=== PATIENT | female | born 1990 | race African-American/Black ===

== ENCOUNTER 2016-08-17 21:57 | Emergency (ER) | payer SELFPAY ==
[2016-08-17 22:03] VITALS: BP 135/84; BMI 34.7
[2016-08-17 23:06] LABS: APPEARANCE,URINE HAZY (CLEAR); BACTERIA,URINE TRACE /HPF (NEGATIVE); BILIRUBIN,URINE NEGATIVE (NEGATIVE); BLOOD/HEMOGLOBIN,URINE 5+ (NEGATIVE); COLOR,URINE YELLOW (YELLOW); GLUCOSE, URINE NEGATIVE (NEGATIVE); KETONES,URINE NEGATIVE (NEGATIVE); LEUKOCYTE ESTERASE ,URINE 2+ (NEGATIVE); NITRITES,URINE NEGATIVE (NEGATIVE); PROTEIN,URINE 2+ (NEGATIVE); RBC,URINE 40-50 /HPF (NEGATIVE); SQUAMOUS EPITHELIAL CELL,UR MODERATE /HPF (NEGATIVE); UROBILINOGEN,URINE 1+ (NORMAL)
--- NOTE | 2016-08-18 00:11 | DR.PREG ---
HPI - Time seen Time seen: 00:07 - PCP Primary Care Physician: SANOTSH - Chief Complaint Chief Complaint Doctors Comments: Patient states she has been spotting after taking a home pregancy test a week ago she has noticed spotting. states she went to the clinic and they told her she was 6-7 weeks j. states she is a . She has not local doctor and she has not seen a doctor during this . She denies fever, chills, nausea or vomiting. She denies hematuria, dysuria or vaginal discharge or continuous bleeding. She is not having any abdominal pain or cramping. States last sexual activit two week ago. Chief Complaint:: PT STATES SHE HAS BEEN SPOTTING FOR SEVERAL DAYS, BUT NOTICED A CLOT TODAY. PT DENIES CRAMPING OR ABD PAIN. - Nurses Notes Reviewed Nurses Notes Review: Yes - Source History Provided: Patient - Mode of Arrival Mode of Arrival: Ambulatory - Context Complains of: Other (spotting) History of: Previous vaginal delivery : 5 Para: 3 Abortions: 1 Gestational Age in Weeks: 7 Care: No - Quality Vaginal fluid leakage color: None - Timing Onset of Chief Complaint: 08/13/16 Came on: Gradually Pain: Resolved Pain: None - Severity Vaginal Bleeding: Deferred Vaginal Leakage: Deferred - Associated Signs & Symptoms Asociated signs & symptoms: None PMH - PMH Past Medical History: No Past Surgical History: No - Family History History of Family Medical Conditions: No Family Medical History: Diabetes Mellitus, Hypertension - Social History Alcohol Use: None Do you use any recreational Drugs:: No Lives With: Family Lives Where: Home - infectious screening In the last 2 months have you had wt loss of >10#?: NO Have you had fever, night sweats or hemotysis?: No Have you traveled outside the country in the last 6 months?: No Isolation: Standard ROS - Review of Systems Constitutional: No Symptoms Reported. negative: See HPI, Chills, Diaphoresis, Fever, Malaise, Weakness, Irritable, Fatigue, Loss of Appetite, Other Eyes: No Symptoms Reported ENTM: No Symptoms Reported Respiratoy: No Symptoms Reported. negative: See HPI, Productive Cough, Non- Productive Cough, Moist Cough, Dry Cough, Hacking Cough, Barking Cough, Brassy Cough, Orthopnea, Short of Breath, Stridor, Wheezing, Hemoptysis, Other Cardiovascular: No Symptoms Reported Gastrointestinal/Abdominal: No Symptoms Reported Genitourinary: No Symptoms Reported. negative: See HPI, Discharge, Dysuria, Frequency, Hematuria, Pain, Bleeding, Other Neurological: No Symptoms Reported Musculoskeletal: No Symptoms Reported Integumentary: No Symptoms Reported Hematologic/Lymphatic: No Symptoms Reported Endocrine: No Symptoms Reported Psychiatric: No Symptoms Reported. negative: See HPI, Anxiety, Depression, Hallucinations, Excessive crying, Suicidal, Other PE - Vital Signs Vitals: Temperature 98.1 F Pulse Rate 104 Respiratory Rate 20 Blood Pressure [Left Arm] 125/76 Blood Pressure 135/84 O2 Sat by Pulse Oximetry 99 - General Limitations: No Limitations General Appearance: Alert, In No Apparent Distress - Head Head Exam: Normal Inspection, Atraumatic, Normocephalic - Eyes Eye exam: Normal Appearance, PERRL, EOMI. negative: Scleral Icterus, Conjunctival Injection, Nystagmus, Miosis, Mydrasis, Periorbital Swelling, Periorbital Tenderness, Other - ENT ENT Exam: Normal Exam, Normal Oropharynx, Normal External Ear Exam, Mucous Membranes Moist, TM's Normal Bilaterally - Neck Neck Exam: Normal Inspection, Full ROM, Trachea Midline. negative: Tenderness, Meningismus, Lymphadenopathy, Thyromegaly, Other - Chest Chest Inspection: Normal Inspection, Symmetric Chest Wall Rise. negative: Tenderness, Rash, Abscess, Other - Respiratory Respiratory Exam: Normal Lung Sounds Bilat. negative: Accessory Muscle Use, Chest Wall Tenderness, Prolonged Expiratory Phase, Respiratory Distress, Stridor , Other Respiratory Exam: Bilateral Clear to Auscultation - Cardiovascular Cardiovascular Exam: Regular Rate, Normal Rhythm - Abdominal Exam Abdominal Exam: Normal Inspection, Normal Bowel Sounds, Soft Abdominal Tenderness: negative: RUQ, RLQ, LUQ, LLQ, Epigastrium, Suprapubic, Diffuse, Mild, Moderate, Severe, Other - Contractions: None - Back Back Exam: Normal Inspection, Full ROM. negative: Tenderness, (R) CVA Tenderness, (L) CVA Tenderness, Muscle Spasm, Paraspinal Tenderness, Vertebral Tenderness, Rashes, (R) Sciatic Notch Tenderness, (L) Sciatic Notch Tendern, (R ) Straight Leg Raise, (L) Straight Leg Raise, Other - Extremeties Extremities Exam: Normal Inspection, Full ROM, Normal Capillary Refill. negative: Tenderness, Edema, Joint Swelling, Calf Tenderness, Other - Neurologic Neurological Exam: Alert, Oriented X3, CN II-XII Intact, Normal Gait, Reflexes Normal - Psychiatric Psychiatric Exam: Normal Affect, Normal Mood. negative: Depressed, Agitated, Anxious, Flat Affect, Manic, Homicidal Ideation, Suicidal Ideation, Other - Skin Skin Exam: Warm, Dry, Intact, Normal Color. negative: Rash, Cyanosis, Diaphoresis, Erythema, Pallor, Mottled, Other ROR - Labs Reviewed Laboratory Results Reviewed?: Yes (all labs reviewed and discussed with patient. Awaiting quantitative HCG ) Result Diagrams: 08/18/16 00:40 Laboratory: WBC 7.4 X10^3/uL (3.6-10.0) 08/18/16 00:40 RBC 4.48 X10^6/uL (3.5-5.4) 08/18/16 00:40 Hgb 12.0 g/dL (12.0-16.0) 08/18/16 00:40 Hct 36.8 % (36.0-47.0) 08/18/16 00:40 MCV 82.2 fL (80.0-100.0) 08/18/16 00:40 MCH 26.9 pg (27.0-34.0) L 08/18/16 00:40 MCHC 32.7 g/dL (33.0-35.0) L 08/18/16 00:40 RDW 14.3 % (11.6-16.5) 08/18/16 00:40 Plt Count 204 X10^3/uL (150.0-450.0) 08/18/16 00:40 MPV 9.7 fL (7.4-11.0) 08/18/16 00:40 Neut % 66.0 % (42.0-75.0) 08/18/16 00:40 Lymph % 25.6 % (21.0-51.0) 08/18/16 00:40 [place] % 6.3 % (0.0-13.0) 08/18/16 00:40 Eos % 1.6 % (0.9-2.9) 08/18/16 00:40 Baso % 0.5 % (0.2-1.0) 08/18/16 00:40 Neut # 4.9 x10^3/uL (2.2-4.8) H 08/18/16 00:40 Lymph # 1.9 X10^3/uL (1.3-2.9) 08/18/16 00:40 Bryan # 0.5 x10^3/uL (0.3-0.8) 08/18/16 00:40 Eos # 0.1 x10^3/uL (0.0-0.2) 08/18/16 00:40 Baso # 0.0 X10^3/uL (0.0-0.1) 08/18/16 00:40 Absolute Nucleated RBC 0.0 /100WBC 08/18/16 00:40 HCG, Quant [id number] mIU/mL (0-6) H 08/18/16 00:40 Specimen Type Clean catch urine 08/17/16 22:38 Urine Color Yellow (YELLOW) 08/17/16 22:38 Urine Appearance Hazy (CLEAR) 08/17/16 22:38 Urine pH 6.0 (5.0 - 8.0) 08/17/16 22:38 Ur Specific [place] 1.020 (1.000-1.030) 08/17/16 22:38 Urine Protein 2+ (NEGATIVE) 08/17/16 22:38 Urine Glucose (UA) Negative (NEGATIVE) 08/17/16 22:38 Urine Ketones Negative (NEGATIVE) 08/17/16 22:38 Urine Occult Blood 5+ (NEGATIVE) 08/17/16 22:38 Urine Nitrite Negative (NEGATIVE) 08/17/16 22:38 Urine Bilirubin Negative (NEGATIVE) 08/17/16 22:38 Urine Urobilinogen 1+ (NORMAL) 08/17/16 22:38 Ur Leukocyte Esterase 2+ (NEGATIVE) 08/17/16 22:38 Urine RBC 40-50 /HPF (NEGATIVE) 08/17/16 22:38 Urine WBC 10-15 /HPF (NEGATIVE) 08/17/16 22:38 Ur Squamous Epith Cells Moderate /HPF (NEGATIVE) 08/17/16 22:38 Urine Bacteria Trace /HPF (NEGATIVE) 08/17/16 22:38 Ur Culture Indicated? Yes/culture set up 08/17/16 22:38 - Diagnosis Discharge Problem: Vaginal spotting, Urinary tract infection Qualifiers: Weeks of gestation: 8 weeks Qualified Code(s): Z3A.08 - 8 weeks gestation of - Discharge Plan Disposition: 01 HOME, SELF-CARE Condition: Stable Prescriptions: Amoxicillin [AMOXIL CAP 500 MG *] 500 mg PO TID #30 cap - Follow ups/Referrals Follow ups/Referrals: DARCY FROST [Primary Care Provider] - 3 days - Instructions Instructions: Vaginal Bleeding During , First Trimester, Urinary Tract Infection,
[2016-08-18 01:00] LABS: BASOPHILS % (AUTO) 0.5 % (0.2-1.0); EOSINOPHILS # (AUTO) 0.1 x10^3/uL (0.0-0.2); EOSINOPHILS % (AUTO) 1.6 % (0.9-2.9); HEMATOCRIT 36.8 % (36.0-47.0); LYMPHOCYTES # (AUTO) 1.9 X10^3/uL (1.3-2.9); LYMPHOCYTES % (AUTO) 25.6 % (21.0-51.0); MEAN CORPUSCULAR HEMOGLOBIN 26.9 pg (27.0-34.0); MEAN CORPUSCULAR HGB CONC 32.7 g/dL (33.0-35.0); MEAN CORPUSCULAR VOLUME 82.2 fL (80.0-100.0); MEAN PLATELET VOLUME 9.7 fL (7.4-11.0); MONOCYTES # (AUTO) 0.5 x10^3/uL (0.3-0.8); MONOCYTES % (AUTO) 6.3 % (0.0-13.0); NEUTROPHILS # (AUTO) 4.9 x10^3/uL (2.2-4.8); PLATELET COUNT 204 X10^3/uL (150.0-450.0); RED BLOOD COUNT 4.48 X10^6/uL (3.5-5.4); RED CELL DISTRIBUTION WIDTH 14.3 % (11.6-16.5); WHITE BLOOD COUNT 7.4 X10^3/uL (3.6-10.0)
[2016-08-18] MEDS ORDERED: AUGMENTIN 500 MG/125 MG TAB PO ONE ×2 (01:16→01:29)
[2016-08-18] MEDS ORDERED: CHRONULAC PO STA (01:30)
[2016-08-18] MEDS ORDERED: CHRONULAC PO SCH (09:00)
== END 2016-08-18 02:05 | disposition home or self-care (01) ==
LOC: ER 22:22
DX: O26.851 Spotting complicating pregnancy, first trimester (principal); N39.0 Urinary tract infection, site not specified; Z3A.08 8 weeks gestation of pregnancy
CPT/HCPCS: 36415; 81001; 84702; 85025; 87086; 99282

== ENCOUNTER 2018-03-27 06:21 | Inpatient (IN) ==
[2018-03-27] MEDS ORDERED: D5 1/2 NS 1000 ML 1,000 ML IV ONE (06:28)
[2018-03-27] MEDS ORDERED: PITOCIN IVP ONE (06:58)
[2018-03-27] MEDS ORDERED: REGLAN INJ 10 MG VIAL IVP PRN ×2 (06:58→12:43)
[2018-03-27] MEDS ORDERED: D5 1/2 NS 1000 ML 1,000 ML IV SCH (06:58)
[2018-03-27] MEDS ORDERED: D5LR 1L W PITOCIN 10 UNITS/L 10 UNITS/1,000 ML BAG IV PRN (06:58)
[2018-03-27] MEDS ORDERED: AMPICILLIN VIAL 2 GRAM 2 G in NS 100 ML IV + SPIKE MINIBAG* 100 ML IV SCH (06:58)
[2018-03-27] MEDS ORDERED: PHENERGAN INJ 25 MG IV PRN (06:58)
[2018-03-27] MEDS ORDERED: NUBAIN INJ 200 MG VIAL MULTIDOSE IVP PRN (06:58)
[2018-03-27] MEDS ORDERED: NS 100 ML IV 100 ML IV ONE (06:59)
[2018-03-27] MEDS ORDERED: AMPICILLIN VIAL 2 GRAM ONE (07:00)
--- NOTE | 2018-03-27 07:02 | DR.OB ---
OB Quick Note - Assessment/Plan Assessment/Plan: L&D 03/27/18 at 6:50am S-No complaint. O-Afebrile,VSS WHK=[id number] with good LTV, +accel, no decel CTX=none CVX=4cm/50%/-1/VTX AROM with clear fluid. IUPC and FSE placed. A-IUP at 38 4/7 weeks for induction +GBS Multiparity P-Begin pitocin induction IV ABX in labor Anticipate with PP BTL
[2018-03-27] MEDS ORDERED: LR 1000 ML IV 1,000 ML IV ONE (07:07)
[2018-03-27] MEDS ORDERED: FENTANYL INJ 100 mcg ONE ×2 (07:08→10:40)
[2018-03-27] MEDS ORDERED: NAROPIN EPIDURAL 0.2% + FENTANYL 90MCG 0 ML EPI ONE (07:09)
[2018-03-27] MEDS ORDERED: XYLOCAINE 1 % (PLAIN) ONE (07:57)
[2018-03-27] MEDS ORDERED: ADRENALINE CHL INJ ONE (07:58)
[2018-03-27] MEDS ORDERED: XYLOCAINE-MPF 1% ONE (07:58)
[2018-03-27] MEDS ORDERED: NUBAIN INJ 10 ONE (08:03)
[2018-03-27] MEDS ORDERED: MOTRIN TAB 800 MG PO PRN (10:34)
[2018-03-27] MEDS: AMPICILLIN VIAL 1 GRAM 1 G in NS 50 ML IV + SPIKE MINIBAG* 50 ML IV SCH ×2 (10:40→10:44)
[2018-03-27] MEDS ORDERED: ANCEF VIAL 1 GRAM ONE (10:57)
[2018-03-27] MEDS ORDERED: D5 1/2 NS 1000 ML 1,000 ML with PITOCIN 20 UNITS IV SCH ×2 (11:00)
[2018-03-27] MEDS ORDERED: NS 1000 ML 1,000 ML ONE (11:39)
[2018-03-27] MEDS ORDERED: DILAUDID INJ ONE (12:07)
[2018-03-27] MEDS ORDERED: BENADRYL INJ 50 MG VIAL IVP PRN (12:43)
[2018-03-27] MEDS ORDERED: PHENERGAN INJ 25 MG IVP PRN (12:43)
[2018-03-27] MEDS ORDERED: DILAUDID INJ IVP PRN (12:43)
[2018-03-27] MEDS ORDERED: ZOFRAN INJ 4 MG VIAL IVP PRN (12:43)
[2018-03-27] MEDS ORDERED: NS IRRIGATION 500 ML IR ONE (13:34)
[2018-03-27] MEDS ORDERED: MYLICON TAB 80 MG CHEW PO PRN (14:13)
[2018-03-27] MEDS ORDERED: DERMOPLAST SPRAY TOP PRN (14:13)
[2018-03-27] MEDS ORDERED: ADACEL or BOOSTRIX TDaP VACCINE IM ONE (14:13)
[2018-03-27] MEDS ORDERED: AMBIEN PO PRN (14:13)
[2018-03-27] MEDS ORDERED: MILK OF MAGNESIA PO PRN (14:13)
[2018-03-27] MEDS ORDERED: NORCURON INJ 10 MG VIAL ONE (15:32)
[2018-03-27] MEDS ORDERED: LTA KIT LIDOCAINE 4% ONE (15:32)
[2018-03-27] MEDS ORDERED: ZOFRAN INJ 4 MG VIAL ONE (15:32)
[2018-03-27] MEDS ORDERED: ROBINUL ONE (15:32)
[2018-03-27] MEDS ORDERED: NEOSTIGMINE INJ ONE (15:32)
[2018-03-27] MEDS ORDERED: DIPRIVAN VIAL ONE (15:32)
[2018-03-27] MEDS ORDERED: AMIDATE INJ 40 MG VIAL ONE (15:32)
[2018-03-27] MEDS ORDERED: VERSED ONE (15:32)
[2018-03-27] MEDS ORDERED: SUPRANE IN ONE (15:32)
--- NOTE | 2018-03-27 16:31 | DR.OB ---
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 Head delivered over intact perineum. No nuchal cord. Nose and mouth bulb suctioned. Body delivered over intact perineum. Cord clamped x 2 and cut. Infant handed to attendant. Cord sent for gases. Placenta delivered spontaneously / intact / 3 vessel cord. No CVX / vaginal / perineal tears. Viable female infant, VTX/OA, wt=6'9" and 8/9, stable to NBN. Mother stable to RR. FUN=[id number].
[2018-03-27] MEDS: PERCOCET TAB 5/325 MG PO PRN (21:15)
[2018-03-27] MEDS: ZANTAC PO SCH (21:15)
[2018-03-28] MEDS: PERCOCET TAB 5/325 MG PO PRN ×2 (04:56→11:16)
[2018-03-28 06:11] LABS: HEMATOCRIT 27.5 % (36.0-47.0); HEMOGLOBIN 9.4 g/dL (12.0-16.0)
[2018-03-28] MEDS: ZANTAC PO SCH (08:00)
[2018-03-28 08:03] VITALS: BP 133/84
[2018-03-28] MEDS ORDERED: PRENATAL PLUS PO SCH (09:00)
[2018-03-28] MEDS ORDERED: BACTROBAN CREAM ONE (11:20)
[2018-03-28] MEDS ORDERED: BACTROBAN CREAM TOP SCH (14:00)
== END 2018-03-28 13:35 | disposition home or self-care (01) | DRG 798 ==
LOC: LD 06:21 → MED/SURG 13:08
PROVIDERS: ADMIT Specialist; ATTEND Specialist
DX: Z37.0 Single live birth; Z23 Encounter for immunization; Z01.818 Encounter for other preprocedural examination; O99.824 Streptococcus B carrier state complicating childbirth; B95.1 Streptococcus, group B, as the cause of diseases classified elsewhere; Z3A.38 38 weeks gestation of pregnancy; Z30.2 Encounter for sterilization
CPT/HCPCS: 36415; 59409; 80048; 80307; 81001; 85014; 85018; 85025; 86592; 86850; 86900; 86901; 90715; A4216; A4222; S0197; G0434; J0171; J0290; J0690; J1170; J2250; J2300; J2405; J2590; J2704; J2710; J3010; J3490; J7030; J7050; J7120; S5010

== ENCOUNTER 2018-04-07 06:41 | Observation (INO) ==
[2018-04-07 06:59] VITALS: BMI 28.7
[2018-04-07] MEDS ORDERED: NS 1000 ML 1,000 ML ONE (07:17)
[2018-04-07] MEDS ORDERED: NS 1000 ML 1,000 ML IV ONE (07:17)
[2018-04-07 07:33] LABS: BASOPHILS % (AUTO) 0.7 % (0.2-1.0); EOSINOPHILS # (AUTO) 0.1 x10^3/uL (0.0-0.2); HEMATOCRIT 33.4 % (36.0-47.0); HEMOGLOBIN 10.9 g/dL (12.0-16.0); MEAN CORPUSCULAR HEMOGLOBIN 27.9 pg (27.0-34.0); MEAN CORPUSCULAR HGB CONC 32.5 g/dL (33.0-35.0); MEAN CORPUSCULAR VOLUME 85.8 fL (80.0-100.0); MEAN PLATELET VOLUME 8.6 fL (7.4-11.0); MONOCYTES # (AUTO) 0.3 x10^3/uL (0.3-0.8); MONOCYTES % (AUTO) 5.6 % (0.0-13.0); NEUTROPHILS # (AUTO) 3.2 x10^3/uL (2.2-4.8); NEUTROPHILS % (AUTO) 56.7 % (42.0-75.0); PLATELET COUNT 259 X10^3/uL (150.0-450.0); RED BLOOD COUNT 3.89 X10^6/uL (3.5-5.4); RED CELL DISTRIBUTION WIDTH 13.8 % (11.6-16.5); WHITE BLOOD COUNT 5.6 X10^3/uL (3.6-10.0)
[2018-04-07 07:43] LABS: ALANINE AMINOTRANSFERASE 13 Units/L (12-78); ALKALINE PHOSPHATASE 74 Units/L (46-116); ASPARTATE AMINO TRANSFERASE 12 Units/L (15-37); BLOOD UREA NITROGEN 5 mg/dL (7-18); CALCIUM 8.8 mg/dL (8.5-10.1); CARBON DIOXIDE 25.5 mmol/L (21-32); CHLORIDE 105 mmol/L (98-107); COR CA(FOR HYPOALB) 9.6 mg/dL (8.5-10.1); CREATININE 0.74 mg/dL (0.55-1.02); SODIUM 140 mmol/L (136-145); eGFR NON BLACK RACES > 60 (>60)
--- NOTE | 2018-04-07 07:47 | DR.VAGB ---
HPI Time Seen Time Seen by Provider: 04/07/18 07:38 PCP Primary Care Physician: KAREN HPI Comment HPI Comment: HISTORY BELOW. Complaint Chief Complaint Doctors Comments: INCREASING VAGINAL BLEEDING. 11DAYS POST VAGINAL DELIVERY FOLLOW WITH TUBAL LIGATION. STARTED BLEEDING SEVERELY 2 DAYS ADO. SEEN ED DISCHARGE. CONTINUE BLEEDING AND TODAY, BLOOD IS DRAINING OFF HER. SHE HAS SOAK SEVERAL TOWELS. SHE IS WEAK AND DIZZY. 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 Family History History of Family Medical Conditions: Yes Family Medical History: Diabetes Mellitus and Hypertension Social History Does patient currently use any type of tobacco product: No Have you used tobacco products in the last 12 months: No Type of Tobacco Use: None Does any household member use tobacco: No Alcohol Use: None Do you use any recreational Drugs:: No Lives With: Family Lives Where: Home infectious screening In the last 2 months have you had wt loss of >10#?: NO Have you had fever, night sweats or hemotysis?: No Have you traveled outside the country in the last 6 months?: No Isolation: Standard ROS Review of Systems Constitutional: Weakness and Fatigue Eyes: No Symptoms Reported ENTM: No Symptoms Reported Respiratoy: No Symptoms Reported Cardiovascular: No Symptoms Reported Gastrointestinal/Abdominal: No Symptoms Reported Genitourinary: Bleeding (VAGINAL BLEEDING.) Neurological: No Symptoms Reported Musculoskeletal: No Symptoms Reported Integumentary: No Symptoms Reported Hematologic/Lymphatic: No Symptoms Reported Endocrine: No Symptoms Reported Psychiatric: No Symptoms Reported All Other Systems: Reviewed and Negative PE Vital Signs Vitals: Temperature 97.9 F Pulse Rate 94 Respiratory Rate 20 Blood Pressure [Left Arm] 146/88 Blood Pressure 134/94 O2 Sat by Pulse Oximetry 99 General Limitations: No Limitations General Appearance: Alert Head Head Exam: Normal Inspection Eyes Eye exam: Normal Appearance ENT ENT Exam: Normal External Ear Exam Neck Neck Exam: Normal Inspection Chest Chest Inspection: Normal Inspection and Symmetric Chest Wall Rise Respiratory Respiratory Exam: Normal Lung Sounds Bilat Respiratory Exam: Bilateral: Clear to Auscultation Cardiovascular Cardiovascular Exam: Regular Rate and Normal Rhythm Abdominal Exam Abdominal Exam: Normal Inspection, Normal Bowel Sounds, Soft and Tenderness Abdominal Tenderness: RLQ, LLQ, Suprapubic and Mild Rectal Rectal Exam: Deferred Genitourinary External Exam: Female: Deferred : Speculum Exam (Female): Deferred : Bimanual Exam (female): Deferred Back Back Exam: Normal Inspection Neurologic Neurological Exam: Alert and Oriented X3; negative Motor Sensory Deficit Skin Skin Exam: Intact MDM Differential diagnosis Diffenential diagnosis: Other (VAGINAL BLEEDING.) COURSE Treatment Treatment: SEE ORDERS. Education/Counseling Education/Counseling: Patient Educated On: Diagnosis ROR Labs Reviewed Laboratory Results Reviewed?: Yes Result Diagrams: 04/07/18 07:20 04/07/18 07:20 Laboratory: WBC 5.6 X10^3/uL (3.6-10.0) 04/07/18 07:20 RBC 3.89 X10^6/uL (3.5-5.4) 04/07/18 07:20 Hgb 10.9 g/dL (12.0-16.0) L 04/07/18 07:20 Hct 33.4 % (36.0-47.0) L 04/07/18 07:20 MCV 85.8 fL (80.0-100.0) 04/07/18 07:20 MCH 27.9 pg (27.0-34.0) 04/07/18 07:20 MCHC 32.5 g/dL (33.0-35.0) L 04/07/18 07:20 RDW 13.8 % (11.6-16.5) 04/07/18 07:20 Plt Count 259 X10^3/uL (150.0-450.0) 04/07/18 07:20 MPV 8.6 fL (7.4-11.0) 04/07/18 07:20 Neut % (Auto) 56.7 % (42.0-75.0) 04/07/18 07:20 Lymph % (Auto) 36.0 % (21.0-51.0) 04/07/18 07:20 [place] % (Auto) 5.6 % (0.0-13.0) 04/07/18 07:20 Eos % (Auto) 1.0 % (0.9-2.9) 04/07/18 07:20 Baso % (Auto) 0.7 % (0.2-1.0) 04/07/18 07:20 Neut # (Auto) 3.2 x10^3/uL (2.2-4.8) 04/07/18 07:20 Lymph # (Auto) 2.0 X10^3/uL (1.3-2.9) 04/07/18 07:20 [place] # (Auto) 0.3 x10^3/uL (0.3-0.8) 04/07/18 07:20 Eos # (Auto) 0.1 x10^3/uL (0.0-0.2) 04/07/18 07:20 Baso # (Auto) 0.0 X10^3/uL (0.0-0.1) 04/07/18 07:20 Absolute Nucleated RBC 0.0 /100WBC 04/07/18 07:20 INR Target Range - 04/07/18 07:20 INR 1.00 (0.8-1.3) 04/07/18 07:20 APTT 30.6 SECONDS (22.9-36.5) 04/07/18 07:20 PTT Comment - 04/07/18 07:20 Fibrinogen 286 mg/dL (239-489) 04/07/18 07:20 Other Results Comments: DISCUSS PATIENT WITH DR. TABOR. PELVIC US AND CALL HIM.
[2018-04-07] MEDS ORDERED: ZOFRAN INJ 4 MG VIAL ONE (08:58)
[2018-04-07] MEDS ORDERED: QUELICIN (OR ANECTINE) ONE (08:58)
[2018-04-07] MEDS ORDERED: DIPRIVAN VIAL ONE (08:58)
[2018-04-07] MEDS ORDERED: LTA KIT LIDOCAINE 4% ONE (08:58)
[2018-04-07] MEDS ORDERED: SUPRANE IN ONE (08:58)
--- NOTE | 2018-04-07 09:15 | US ---
HISTORY: Vaginal bleeding 11 days Study: Pelvic sonogram Comparison: None Technique: Multiple grayscale sonographic images were obtained. Findings: The uterus measured 13.6 x 8.5 x 10.2 cm. There is a large amount of echogenic material and some fluid within the endometrium. Although this could represent thrombus the possibility of retained products of conception should be considered. The right ovary measured 4 x 3.9 x 3 cm and appeared normal. The left ovary measured 4.3 x 3 x 2.2 cm and appeared normal. IMPRESSION: Moderately large amount of complex material within the endometrial canal which could represent thrombus of varying a however retained products of conception may also be present. Reported By:
--- NOTE | 2018-04-07 09:26 | DR.VAGB ---
HPI Time Seen Time Seen by Provider: 04/07/18 07:38 PCP Primary Care Physician: KAREN Mueller Chief Complaint Doctors Comments: INCREASING VAGINAL BLEEDING. 11DAYS POST VAGINAL DELIVERY FOLLOW WITH TUBAL LIGATION. STARTED BLEEDING SEVERELY 2 DAYS ADO. SEEN ED DISCHARGE. CONTINUE BLEEDING AND TODAY, BLOOD IS DRAINING OFF HER. SHE HAS SOAK SEVERAL TOWELS. SHE IS WEAK AND DIZZY. 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 Family History History of Family Medical Conditions: Yes Family Medical History: Diabetes Mellitus and Hypertension Social History Does patient currently use any type of tobacco product: No Have you used tobacco products in the last 12 months: No Type of Tobacco Use: None Does any household member use tobacco: No Alcohol Use: None Do you use any recreational Drugs:: No Lives With: Family Lives Where: Home infectious screening In the last 2 months have you had wt loss of >10#?: NO Have you had fever, night sweats or hemotysis?: No Have you traveled outside the country in the last 6 months?: No Isolation: Standard PE Vital Signs Vitals: Temperature 98 F Pulse Rate [Right Brachial] 111 Pulse Rate 76 Respiratory Rate 20 Blood Pressure [Right Arm] 117/81 Blood Pressure [Left Arm] 151/93 Blood Pressure 125/84 O2 Sat by Pulse Oximetry 100 MDM Differential diagnosis Diffenential diagnosis: Other (VAGINAL BLEEDING.) COURSE Consultation Called: 09:18 Consultation Comments: The results of the OB ultrasound was reported to Dr. Jarrett who agreed to admit for a D&C. ROR Labs Reviewed Laboratory Results Reviewed?: Yes Result Diagrams: 04/07/18 07:20 04/07/18 07:20 Laboratory: WBC 5.6 X10^3/uL (3.6-10.0) 04/07/18 07:20 RBC 3.89 X10^6/uL (3.5-5.4) 04/07/18 07:20 Hgb 10.9 g/dL (12.0-16.0) L 04/07/18 07:20 Hct 33.4 % (36.0-47.0) L 04/07/18 07:20 MCV 85.8 fL (80.0-100.0) 04/07/18 07:20 MCH 27.9 pg (27.0-34.0) 04/07/18 07:20 MCHC 32.5 g/dL (33.0-35.0) L 04/07/18 07:20 RDW 13.8 % (11.6-16.5) 04/07/18 07:20 Plt Count 259 X10^3/uL (150.0-450.0) 04/07/18 07:20 MPV 8.6 fL (7.4-11.0) 04/07/18 07:20 Neut % (Auto) 56.7 % (42.0-75.0) 04/07/18 07:20 Lymph % (Auto) 36.0 % (21.0-51.0) 04/07/18 07:20 [place] % (Auto) 5.6 % (0.0-13.0) 04/07/18 07:20 Eos % (Auto) 1.0 % (0.9-2.9) 04/07/18 07:20 Baso % (Auto) 0.7 % (0.2-1.0) 04/07/18 07:20 Neut # (Auto) 3.2 x10^3/uL (2.2-4.8) 04/07/18 07:20 Lymph # (Auto) 2.0 X10^3/uL (1.3-2.9) 04/07/18 07:20 [place] # (Auto) 0.3 x10^3/uL (0.3-0.8) 04/07/18 07:20 Eos # (Auto) 0.1 x10^3/uL (0.0-0.2) 04/07/18 07:20 Baso # (Auto) 0.0 X10^3/uL (0.0-0.1) 04/07/18 07:20 Absolute Nucleated RBC 0.0 /100WBC 04/07/18 07:20 INR Target Range - 04/07/18 07:20 INR 1.00 (0.8-1.3) 04/07/18 07:20 APTT 30.6 SECONDS (22.9-36.5) 04/07/18 07:20 PTT Comment - 04/07/18 07:20 Fibrinogen 286 mg/dL (239-489) 04/07/18 07:20 Sodium 140 mmol/L (136-145) 04/07/18 07:20 Corrected Sodium TNP 04/07/18 07:20 Potassium 3.4 mmol/L (3.5-5.1) L 04/07/18 07:20 Chloride 105 mmol/L (98-107) 04/07/18 07:20 Carbon Dioxide 25.5 mmol/L (21-32) 04/07/18 07:20 BUN 5 mg/dL (7-18) L 04/07/18 07:20 Creatinine 0.74 mg/dL (0.55-1.02) 04/07/18 07:20 Est GFR (MDRD) Af Amer > 60 (>60) 04/07/18 07:20 Est GFR (MDRD) Non-Af > 60 (>60) 04/07/18 07:20 Glucose 96 mg/dL (65-99) 04/07/18 07:20 Calcium 8.8 mg/dL (8.5-10.1) 04/07/18 07:20 Corrected Calcium 9.6 mg/dL (8.5-10.1) 04/07/18 07:20 Total Bilirubin 0.40 mg/dL (0.2-1.0) 04/07/18 07:20 AST 12 Units/L (15-37) L 04/07/18 07:20 ALT 13 Units/L (12-78) 04/07/18 07:20 Alkaline Phosphatase 74 Units/L (46-116) 04/07/18 07:20 Total Protein 7.0 g/dL (6.4-8.2) 04/07/18 07:20 Albumin 3.0 g/dL (3.4-5.0) L 04/07/18 07:20 Globulin 4.0 g/dL (2.5-4.5) 04/07/18 07:20 Albumin/Globulin Ratio 0.8 Ratio (1.1-2.1) L 04/07/18 07:20 Tissue Pathology To follow 04/07/18 13:33 Blood Type A POSITIVE 04/07/18 09:45 Antibody Screen Negative 04/07/18 09:45 Other Results Comments: Moderately large amount of complex material within the endometrtial canal which could represent thrombus of varying amount however, retained products of conception may also be present. XRAY XRAY Interpreted by: Radiologist Diagnosis Discharge Problem: Vaginal bleeding Instructions Instructions: Dilation and Curettage or Vacuum Curettage, Care After, [place] Forms: Patient Portal ADDITIONAL NOTES Additional Notes Additional Notes: Patient admitted for D&C
[2018-04-07] MEDS ORDERED: D5 1/2 NS 1000 ML 1,000 ML IV SCH (10:00)
[2018-04-07] MEDS ORDERED: LR 1000 ML IV 1,000 ML IV ONE (11:38)
[2018-04-07] MEDS ORDERED: ANCEF VIAL 1 GRAM ONE (11:39)
[2018-04-07] MEDS ORDERED: FENTANYL INJ 100 mcg ONE (11:48)
[2018-04-07] MEDS ORDERED: METHERGINE ONE (13:22)
[2018-04-07] MEDS ORDERED: BENADRYL INJ 50 MG VIAL IVP PRN (13:44)
[2018-04-07] MEDS ORDERED: ZOFRAN INJ 4 MG VIAL IVP PRN (13:44)
[2018-04-07] MEDS ORDERED: REGLAN INJ 10 MG VIAL IVP PRN (13:44)
[2018-04-07] MEDS ORDERED: DILAUDID INJ IVP PRN ×2 (13:44→13:49)
[2018-04-07] MEDS ORDERED: PHENERGAN INJ 25 MG IVP PRN (13:44)
[2018-04-07] MEDS ORDERED: NS 100 ML IV 100 ML with VENOFER 400 MG IV NR ×2 (14:00)
[2018-04-07] MEDS ORDERED: NS 100 ML IV 100 ML IV ONE (14:59)
[2018-04-07] MEDS ORDERED: NORCO 5/325 MG TAB ONE (14:59)
[2018-04-07 18:18] LABS: BASOPHILS % (AUTO) 0.2 % (0.2-1.0); EOSINOPHILS % (AUTO) 0.1 % (0.9-2.9); HEMATOCRIT 22.3 % (36.0-47.0); HEMOGLOBIN 7.6 g/dL (12.0-16.0); LYMPHOCYTES % (AUTO) 15.7 % (21.0-51.0); MEAN CORPUSCULAR VOLUME 85.3 fL (80.0-100.0); MEAN PLATELET VOLUME 8.4 fL (7.4-11.0); MONOCYTES # (AUTO) 0.4 x10^3/uL (0.3-0.8); MONOCYTES % (AUTO) 6.1 % (0.0-13.0); NEUTROPHILS % (AUTO) 77.9 % (42.0-75.0); PLATELET COUNT 172 X10^3/uL (150.0-450.0); RED BLOOD COUNT 2.61 X10^6/uL (3.5-5.4); WHITE BLOOD COUNT 6.4 X10^3/uL (3.6-10.0)
[2018-04-07 18:22] LABS: ALANINE AMINOTRANSFERASE 10 Units/L (12-78); ALBUMIN 2.4 g/dL (3.4-5.0); ALKALINE PHOSPHATASE 58 Units/L (46-116); ASPARTATE AMINO TRANSFERASE 13 Units/L (15-37); BLOOD UREA NITROGEN 5 mg/dL (7-18); CALCIUM 8.1 mg/dL (8.5-10.1); CARBON DIOXIDE 26.8 mmol/L (21-32); CHLORIDE 106 mmol/L (98-107); COR CA(FOR HYPOALB) 9.4 mg/dL (8.5-10.1); COR NA(FOR HYPERGLY) 141 mmol/L (136-145); CREATININE 0.73 mg/dL (0.55-1.02); SODIUM 140 mmol/L (136-145); TOTAL PROTEIN 5.5 g/dL (6.4-8.2); eGFR NON BLACK RACES > 60 (>60)
[2018-04-07 18:36] LABS: HYPOCHROMASIA SLIGHT; PLATELET MORPHOLOGY COMMENT NORMAL (NORMAL); POIKILOCYTOSIS SLIGHT
[2018-04-07] MEDS: HEMOCYTE-PLUS PO SCH (21:23)
[2018-04-07] MEDS: LR 1000 ML IV 1,000 ML IV SCH (22:59)
[2018-04-08 06:05] LABS: BASOPHILS % (AUTO) 0.4 % (0.2-1.0); EOSINOPHILS % (AUTO) 0.7 % (0.9-2.9); LYMPHOCYTES # (AUTO) 1.5 X10^3/uL (1.3-2.9); LYMPHOCYTES % (AUTO) 24.3 % (21.0-51.0); MEAN CORPUSCULAR HEMOGLOBIN 29.3 pg (27.0-34.0); MEAN CORPUSCULAR HGB CONC 34.2 g/dL (33.0-35.0); MEAN CORPUSCULAR VOLUME 85.9 fL (80.0-100.0); MEAN PLATELET VOLUME 9.1 fL (7.4-11.0); MONOCYTES # (AUTO) 0.5 x10^3/uL (0.3-0.8); MONOCYTES % (AUTO) 8.7 % (0.0-13.0); NEUTROPHILS # (AUTO) 4.1 x10^3/uL (2.2-4.8); NEUTROPHILS % (AUTO) 65.9 % (42.0-75.0); PLATELET COUNT 157 X10^3/uL (150.0-450.0); RED BLOOD COUNT 2.11 X10^6/uL (3.5-5.4); RED CELL DISTRIBUTION WIDTH 13.9 % (11.6-16.5); WHITE BLOOD COUNT 6.2 X10^3/uL (3.6-10.0)
[2018-04-08 06:11] LABS: ALANINE AMINOTRANSFERASE 9 Units/L (12-78); ALBUMIN 2.1 g/dL (3.4-5.0); ALKALINE PHOSPHATASE 50 Units/L (46-116); ASPARTATE AMINO TRANSFERASE 11 Units/L (15-37); BLOOD UREA NITROGEN 4 mg/dL (7-18); CALCIUM 7.8 mg/dL (8.5-10.1); CARBON DIOXIDE 27.1 mmol/L (21-32); CHLORIDE 109 mmol/L (98-107); COR CA(FOR HYPOALB) 9.3 mg/dL (8.5-10.1); COR NA(FOR HYPERGLY) 142 mmol/L (136-145); CREATININE 0.59 mg/dL (0.55-1.02); SODIUM 142 mmol/L (136-145); TOTAL PROTEIN 4.8 g/dL (6.4-8.2); eGFR NON BLACK RACES > 60 (>60)
[2018-04-08 06:30] LABS: HEMATOCRIT 18.1 % (36.0-47.0)
[2018-04-08 06:33] LABS: HEMOGLOBIN 6.2 g/dL (12.0-16.0)
[2018-04-08] MEDS ORDERED: MICRO K EXTEN CAP 10 MEQ PO PRN (07:05)
[2018-04-08] MEDS ORDERED: KLOR-CON PO PRN (07:05)
[2018-04-08] MEDS ORDERED: POTASSIUM CHLORIDE LIQ 20 MEQ UDC PO PRN (07:05)
[2018-04-08] MEDS ORDERED: POTASSIUM CHL 40 MEQ/NS 0.45% 500 ML IV PRN (07:05)
[2018-04-08] MEDS ORDERED: K-RIDER 10 MEQ/NS 100 ML 10 MEQ/100 ML BAG IV PRN (07:05)
[2018-04-08] MEDS ORDERED: POTASSIUM CHL 60 MEQ/NS 0.45% 500 ML IV PRN (07:05)
[2018-04-08] MEDS: HEMOCYTE-PLUS PO SCH ×2 (08:45→20:30)
[2018-04-08] MEDS: K-DUR TAB 20 MEQ PO PRN ×2 (08:45→12:13)
[2018-04-08] MEDS: PRENATAL PLUS PO SCH (08:45)
[2018-04-08] MEDS: MAGNESIUM SULFATE 1 GRAM/100 mL PREMIX 1 GM/100 ML BAG IV PRN ×2 (08:47→10:10)
[2018-04-08] MEDS ORDERED: DEXFERRUM or INFED 25 MG in NS 100 ML IV 100 ML IV ONE (11:00)
[2018-04-08] MEDS ORDERED: PHARMACY CONSULT - DOSE _____ XX SCH (11:00)
[2018-04-08] MEDS: MILK OF MAGNESIA PO SCH (11:21)
[2018-04-08] MEDS ORDERED: DEXFERRUM or INFED 975 MG in NS 500 ML IV 500 ML IV ONE (12:00)
[2018-04-08] MEDS: LR 1000 ML IV 1,000 ML IV SCH (15:26)
[2018-04-08] MEDS ORDERED: NS IV ONE (17:00)
[2018-04-08] MEDS ORDERED: [UNRECOGNIZED DRUG - OTHER] IV ONE (17:00)
[2018-04-08] MEDS ORDERED: TYLENOL 325 MG TAB PO PRN (17:02)
[2018-04-08] MEDS ORDERED: TYLENOL 325 MG TAB PO ONE (17:21)
[2018-04-08] MEDS ORDERED: COLACE CAP 100 MG PO SCH (21:00)
[2018-04-09 07:47] LABS: BASOPHILS % (AUTO) 0.5 % (0.2-1.0); EOSINOPHILS # (AUTO) 0.1 x10^3/uL (0.0-0.2); EOSINOPHILS % (AUTO) 2.6 % (0.9-2.9); LYMPHOCYTES # (AUTO) 2.2 X10^3/uL (1.3-2.9); LYMPHOCYTES % (AUTO) 38.1 % (21.0-51.0); MEAN CORPUSCULAR HEMOGLOBIN 29.2 pg (27.0-34.0); MEAN CORPUSCULAR HGB CONC 33.8 g/dL (33.0-35.0); MEAN CORPUSCULAR VOLUME 86.4 fL (80.0-100.0); MEAN PLATELET VOLUME 8.5 fL (7.4-11.0); MONOCYTES # (AUTO) 0.4 x10^3/uL (0.3-0.8); MONOCYTES % (AUTO) 6.1 % (0.0-13.0); NEUTROPHILS % (AUTO) 52.7 % (42.0-75.0); PLATELET COUNT 152 X10^3/uL (150.0-450.0); RED BLOOD COUNT 2.06 X10^6/uL (3.5-5.4); RED CELL DISTRIBUTION WIDTH 14.2 % (11.6-16.5); WHITE BLOOD COUNT 5.7 X10^3/uL (3.6-10.0)
[2018-04-09 07:52] LABS: HEMATOCRIT 17.8 % (36.0-47.0)
[2018-04-09 07:59] LABS: ALBUMIN 2.2 g/dL (3.4-5.0); ALKALINE PHOSPHATASE 54 Units/L (46-116); BLOOD UREA NITROGEN 2 mg/dL (7-18); CALCIUM 7.9 mg/dL (8.5-10.1); CARBON DIOXIDE 27.4 mmol/L (21-32); CHLORIDE 109 mmol/L (98-107); COR CA(FOR HYPOALB) 9.3 mg/dL (8.5-10.1); CREATININE 0.48 mg/dL (0.55-1.02); SODIUM 140 mmol/L (136-145); TOTAL PROTEIN 5.2 g/dL (6.4-8.2); eGFR NON BLACK RACES > 60 (>60)
[2018-04-09 08:22] VITALS: BP 134/75
[2018-04-09 08:28] LABS: ASPARTATE AMINO TRANSFERASE 15 Units/L (15-37)
[2018-04-09 08:29] LABS: ALANINE AMINOTRANSFERASE 9 Units/L (12-78)
[2018-04-09] MEDS: PRENATAL PLUS PO SCH (08:37)
[2018-04-09] MEDS: HEMOCYTE-PLUS PO SCH (08:37)
[2018-04-09] MEDS: MILK OF MAGNESIA PO SCH (08:39)
== END 2018-04-09 11:00 | disposition home or self-care (01) ==
LOC: MED/SURG 06:41 → ER 06:41 → MED/SURG 10:17
PROVIDERS: ADMIT Obstetrics & Gynecology Obstetrics; ATTEND Obstetrics & Gynecology Obstetrics
DX: O72.2 Delayed and secondary postpartum hemorrhage
CPT/HCPCS: 36415; 76856; 80053; 83735; 84132; 85025; 85384; 85610; 85730; 86850; 86900; 86901; 96365; 96367; 96374; 99283; 99284; A4222; S0197; G0378; J0330; J0690; J1750; J2210; J2405; J2704; J3010; J3475; J3490; J7030; J7040; J7050; J7120; S5010